=== PATIENT | male | born 1965 | race Caucasian/White ===

== ENCOUNTER 2021-10-10 19:50 | Emergency (ER) | payer OTHER, SELFPAY ==
[~2021-10-10] VITALS: Ht 180.3 cm; Wt 111.8 kg
[2021-10-10] MEDS ORDERED: METF-81 PO (20:10)
[2021-10-10] MEDS ORDERED: METF-1211 PO (20:12)
[2021-10-10] MEDS ORDERED: AMLO5TAB66 PO (20:12)
[2021-10-10] MEDS ORDERED: INSULIN REGULAR, HUMAN 100 UNITS/ML IVP ONE (21:30)
[2021-10-10] MEDS ORDERED: SODIUM CHLORIDE 0.9% 1,000 ML IV ONE (21:30)
[2021-10-10 21:37] LABS: BASOPHILS % (AUTO) 0.6 % (0.0-2.0); EOSINOPHILS % (AUTO) 2.6 % (1.0-6.0); HEMATOCRIT 42.4 % (41-53); HEMOGLOBIN 14.5 g/dL (13.5-17.5); LYMPHOCYTES # (AUTO) 1.2 K/uL (1.0-4.8); LYMPHOCYTES % (AUTO) 20.1 % (22.0-44.0); MEAN CORPUSCULAR HEMOGLOBIN 30.6 pg (26.0-34.0); MEAN CORPUSCULAR HGB CONC 34.2 G/dL (31.0-37.0); MEAN CORPUSCULAR VOLUME 89 fL (80-100); MONOCYTES # (AUTO) 0.5 K/uL (0.1-1.0); MONOCYTES % (AUTO) 7.8 % (2.0-9.0); NEUTROPHILS # (AUTO) 4.1 K/uL (1.8-7.7); NEUTROPHILS % (AUTO) 68.9 % (40.0-70.0); PLATELET COUNT (AUTO) 246 K/uL (150-450); RED BLOOD CELL COUNT(AUTO) 4.74 MIL/uL (4.50-5.90); RED CELL DISTRIBUTION WIDTH 14.2 % (11.5-14.5)
[2021-10-10 21:47] LABS: ALBUMIN 3.4 g/dL (3.4-5.0); BILIRUBIN,TOTAL 0.5 mg/dL (0.1-1.0); CALCIUM, TOTAL 9.7 mg/dL (8.8-10.5); CREATININE 1.28 mg/dL (0.60-1.30); POTASSIUM 4.7 mmol/L (3.5-5.1); TOTAL PROTEIN, SERUM 7.3 g/dL (6.4-8.2)
[2021-10-11 00:02] LABS: GLUCOSE,POINT OF CARE 302 MG/DL (70-110)
[2021-10-11 00:13] LABS: APPEARANCE,URINE CLEAR (CLEAR); BILIRUBIN,URINE NEGATIVE (NEGATIVE); GLUCOSE, URINE (UA) >=1000 mg/dL (NEGATIVE); KETONES,URINE NEGATIVE (NEGATIVE); LEUKOCYTE ESTERASE ,URINE NEGATIVE (NEGATIVE); NITRATE,URINE NEGATIVE (NEGATIVE); OCCULT BLOOD,URINE NEGATIVE (NEGATIVE); PH,URINE 5.5 (5.0-8.0); PROTEIN,URINE NEGATIVE (NEGATIVE); SPECIFIC GRAVITIY, URINE 1.035 (1.003-1.030); UROBILINOGEN,URINE <=1.0 mg/dL (<=1.0)
[2021-10-11 00:19] LABS: AMPHET/METH SCREEN,URINE POSITIVE (NEGATIVE); BARBITURATE SCREEN, URINE NEGATIVE (NEGATIVE); BENZODIAZEPINES SCREEN,URINE NEGATIVE (NEGATIVE); CANNABINOID SCREEN,URINE NEGATIVE (NEGATIVE); COCAINE SCREEN,URINE NEGATIVE (NEGATIVE); METHADONE SCREEN, URINE NEGATIVE (NEGATIVE)
[2021-10-11 00:21] LABS: RBC,URINE 0-2 /HPF (0-2); WBC,URINE 0-2 /HPF (0-5)
[2021-10-11 00:22] LABS: BACTERIA,URINE None Seen /HPF (None Seen)
[2021-10-11 00:28] LABS: OPIATE SCREEN,URINE NEGATIVE (NEGATIVE)
[2021-10-11 00:32] LABS: PHENCYCLIDINE SCREEN,URINE NEGATIVE (NEGATIVE)
[2021-10-11 00:45] VITALS: BP 132/85
[2021-10-11] MEDS ORDERED: POLY17PO PO (01:01)
== END 2021-10-11 01:14 | disposition home or self-care (01) ==
LOC: EMS 19:53
DX: E11.65 Type 2 diabetes mellitus with hyperglycemia (principal); K59.00 Constipation, unspecified; F15.90 Other stimulant use, unspecified, uncomplicated; Z87.898 Personal history of other specified conditions; Z98.890 Other specified postprocedural states; Z59.00 Homelessness unspecified; Z91.013 Allergy to seafood
CPT/HCPCS: 99285; 74176; 96374; 96361; 80053; 82962; 84484; 85025; 36415; 74022; 93005; 80307; 81001; G0480; J1815; J7030

== ENCOUNTER 2022-04-30 09:00 | Emergency (ER) | payer OTHER ==
[~2022-04-30] VITALS: Ht 177.8 cm; Wt 109.1 kg
[~2022-04-30 09:00] MED LIST: AMLO5TAB66 PO; METF-1211 PO; POLY17PO PO
[2022-04-30 09:12] VITALS: BP 129/77
[2022-04-30] MEDS ORDERED: DULA0.75 SQ (09:16)
[2022-04-30] MEDS ORDERED: HYDR-4808 PO (09:16)
[2022-04-30] MEDS ORDERED: ESCI10 PO (09:16)
== END 2022-04-30 09:21 | disposition left against medical advice (07) ==
LOC: EMS 09:03
DX: R05.9 Cough, unspecified (principal); Z53.21 Procedure and treatment not carried out due to patient leaving prior to being seen by health care provider
CPT/HCPCS: 82962